=== PATIENT | male | born 1990 | race Caucasian/White ===

== ENCOUNTER → 2022-06-16 | Outpatient (REF) | payer BC, OTHER | LOC: M SMT 13:05 | PROVIDERS: ATTEND Urology | DX: Z30.2 Encounter for sterilization (principal) ==

== ENCOUNTER → 2024-06-14 | Outpatient (CLI) | payer BC | LOC: M WUC 14:04 | PROVIDERS: ATTEND Student in an Organized Health Care Education/Training Program | DX: M25.531 Pain in right wrist (principal) ==